=== PATIENT | male | born 1995 | race Caucasian/White ===

== ENCOUNTER 2023-07-05 18:44 | Emergency (ER) | payer MEDICAID ==
[~2023-07-05] VITALS: Ht 193 cm; Wt 77.3 kg
[~2023-07-05 18:44] MED LIST: LURA60TA PO
[2023-07-05 18:54] VITALS: TEMP 98.6
[2023-07-05 20:30] VITALS: BP 137/71; PULSE 74; RESP 17
== END 2023-07-05 23:00 | disposition home or self-care (01) ==
LOC: EMS 18:45
DX: N63.0 Unspecified lump in unspecified breast (principal); F32.A Depression, unspecified; F17.210 Nicotine dependence, cigarettes, uncomplicated; F12.90 Cannabis use, unspecified, uncomplicated
CPT/HCPCS: 99281; Z7502